=== PATIENT | male | born 1955 | race Caucasian/White ===

== ENCOUNTER 2024-02-21 14:30 | Emergency (ER) | payer MEDICARE, SELFPAY ==
[2024-02-21 14:32] VITALS: BP 132/107; PULSE 65; RESP 18; TEMP 36.1; O2SAT 96; BMI 25.5
--- NOTE | 2024-02-21 14:56 | EDS_ITS ---
HPI History of Present Illness Chief Complaint: Cellulitis Informant: patient Narrative Narrative: 68-year-old male presenting with pain, swelling, bruising to the right hand and forearm. He states this is from an injury that occurred a month ago and this is the first time he has sought treatment for it. He states his cat scratched him in the arm and as he swatted his cat away he smacked his hand accidentally on a nearby table. He is on warfarin. He had pain and swelling to the area on the back of his hand, he states that a couple days later there was pus coming out of that, he squeezed them out cleaned it with peroxide and has been performing self-care ever since. He states over the last several days to 1 week, the pain and swelling have been increasing, and spreading proximally. No other injuries. No systemic symptoms or fevers or chills. [facility] Medical History Afib TIA (transient ischemic attack) Gout Home Medications ?Medication ?Instructions ?Recorded ?Last Taken ?Type cephalexin 500 mg capsule 500 mg PO Q6 #40 CAPSULES 02/21/24 Unknown Rx Allergy/AdvReac Type Severity Reaction Status Date / Time No Known Allergies Allergy Verified 02/21/24 14:32 Family History no significant family his Surgical History no surgical history Social History Smoking Status: Current every day smoker tobacco type: e-cigarettes ROS ROS ED Constitutional Constitutional ED: Denies chills or fever(s) Musculoskeletal Musculoskeletal: Reports extremity pain; Denies neck pain Integumentary Reports wounds; Denies abscess Neurologic Neurologic: Denies paresthesias or weakness Hematologic/Lymphatic Hematologic/Lymphatic: Reports easy bleeding and easy bruising EXAM Physical Exam Const Vital Signs: 02/21/24 14:30 02/21/24 14:32 Temperature 97 F L Temperature Source Temporal Pulse Rate 65 Respiratory Rate 18 Respiratory Effort Normal Respiratory Pattern Normal Blood Pressure 132/107 H Blood Pressure Mean 115 Pulse Ox 96 Oxygen Delivery Method Room Air Positive well nourished and well developed General Appearance ED: well developed and NAD Neck full ROM and supple Back/Spine normal ROM and normal to inspection Extremity Extremity Narrative: Right upper extremity: Ecchymotic/purpuric dorsum of the right hand, fingers are not involved, there is tenderness at the center of it where the ecchymosis is the most dense, but there is no fluctuance or abscess. The plantar aspect of the hand and fingers is completely normal-appearing. The ecchymosis progresses up to the wrist and distal forearm, and there is a separate satellite patch of ecchymosis in the dorsal proximal forearm. He has some tenderness in the area of the epitrochlear lymph nodes but I do not palpate the nodes. There is no axillary lymphadenopathy or limitation/tenderness. He has full range of motion of the elbow without difficulty, he is able to flex and extend wrist without difficulty but he is limited at extremes due to swelling in the general area. All compartments of the forearm are soft and nondistended and nontender. He has no tingling in the fingertips with brisk cap refill. 2+/4 radial pulse palpable. Neuro oriented x3, no focal motor deficits and no sensory deficits noted Sensorium / Orientation: alert Psych mental status grossly normal and thought process normal Skin no wounds Rashes: no rashes MDM MDM MDM Narrative Medical decision making narrative: Patient states this has been a month. It appears more ecchymotic than it does cellulitic, but with it spreading proximally I would assume infection until proven otherwise. I obtained three-view x-ray series of the right hand, on my i nterpretation I see no obvious bone involvement or tracking subcutaneous emphysema, however radiology is concerned that he may have some early osteomyelitis of the base of the fifth metatarsal and the adjacent hamate. He was given empiric IV Unasyn given the history, even before this x-ray finding was seen. He has no leukocytosis. I added on ESR and CRP, the ESR is within normal limits and the CRP is elevated at 8. His INR is 1.7 a little subtherapeutic. His creatinine is elevated I do not have an old one to compare to. Given this I recommend admission. He will need an MRI, continued IV antibiotics, at the risk of this actually being osteomyelitis which certainly is not impossible since it has been a month since the original infection/injury, and I recommend admission. However the patient states he is not able to do that today because he has other things to do and he refuses. He understands the risks. He has the capacity to make this decision of my judgment. He states he could potentially come back tomorrow in order to be admitted and follow through with my recommendations. I advised him he is welcome to do that. In meantime I going to prescribe him antibiotics and put him in a Velcro wrist splint. Lab Data Attestation: I reviewed the patient's lab results. Labs: Laboratory Results - last 24 hr 02/21/24 15:00 WBC 7.7 RBC 4.94 Hgb 16.7 H Hct 49.1 MCV 99.4 H MCH 33.8 H MCHC 34.0 RDW Std Deviation 51.8 H RDW Coeff of Lemuel 14.4 Plt Count 157 MPV 9.5 Immature Gran % (Auto) 0.300 Neut % (Auto) 64.1 Lymph % (Auto) 19.9 Bladen % (Auto) 10.4 H Eos % (Auto) 4.7 Baso % (Auto) 0.6 Absolute Neuts (auto) 5.0 Absolute Lymphs (auto) 1.54 Nucleated RBC % 0 ESR 9 PT 19.8 H INR 1.7 Sodium 138 Potassium 3.6 Chloride 103 Carbon Dioxide 26.0 Anion Gap 9 BUN 13 Creatinine 1.68 H Estim Creat Clear Calc 48.25 Est GFR (MDRD) Af Amer 52 L Est GFR (MDRD) Non-Af 43 L BUN/Creatinine Ratio 7.7 L Glucose 143 H Calcium 9.6 C-React Prot Ext Range 8.00 H Radiography Diagnostic Testing: Clinical Impression(s) from Imaging Studies Hand X-Ray 02/21/24 15:00 IMPRESSION: 1. Soft tissue swelling with localized osteopenia and cortical loss of definition of the fifth metatarsal and adjacent hamate suggesting early erosion/osteomyelitis. Electronically Signed: Deon Soliman MD ([place]) at 15:18 EDT , Discharge Plan Triage Chief Complaint: Cellulitis ED Provider: Nelson Silva Dx/Rx/DC Orders Clinical Impression: Cat scratch of right hand with infection, Bone infection of right hand, Subtherapeutic international normalized ratio (INR) Instructions: Cellulitis Dc, Osteomyelitis Dc Prescriptions: New cephalexin 500 mg capsule 500 mg PO Q6 Qty: 40 0RF Primary Care Provider: Yvon Resendiz Referrals: Yvon Resendiz MD [Primary Care Provider] - As soon as possible (better to return to ER for admission) Activity Restrictions/Additional Instructions: Your INR is 1.7 today. You may either talk with your doctor for recommendations on dosing change, or take a single extra dose of warfarin and then follow-up for repeat level. As discussed, you may return to the ER at anytime if you change your mind about being admitted. Print Language: Chinese Disposition Disposition: Against Medical Advice
--- NOTE | 2024-02-21 15:00 | RAD_ITS ---
STUDY: X-RAY - RIGHT HAND REASON FOR EXAM: Male, 68 years old. infection/pain TECHNIQUE: 3 view(s) of the hand. COMPARISON: None. FINDINGS: Normal radiocarpal articulation. Normal distal radioulnar joint. Normal visualized carpal bones. Normal carpal articulations Normal carpometacarpal articulation of the thumb. Normal second through fifth carpometacarpal joints. There is localized osteopenia with cortical thinning involving the medial base of the fifth metacarpal and adjacent hamate with moderate soft tissue swelling. Normal metacarpophalangeal joint of the thumb. Normal interphalangeal joint of the thumb. Normal proximal and distal phalanges of the thumb. Normal metacarpophalangeal joints of the second through fifth fingers. Normal proximal and distal interphalangeal joints of the second through fifth fingers. Normal phalanges of the second through fifth fingers. RAD/Hand Min 3 Views IMPRESSION: 1. Soft tissue swelling with localized osteopenia and cortical loss of definition of the fifth metatarsal and adjacent hamate suggesting early erosion/osteomyelitis. Electronically Signed: Deon Soliman MD ([place]) at 15:18 EDT Reading Location ID and State: [facility] / [place] , Service support ,
[2024-02-21 15:24] LABS: Absolute Lymphocyte Count 1.54 X10^3/uL (0.83-4.51); Basophil# 0.05 X10^3/uL; Basophil% 0.6 % (0-1); Eosinophil# 0.36 X10^3/uL; Eosinophils% 4.7 % (0-5); Hematocrit 49.1 % (40-54); Hemoglobin 16.7 g/dL (13.0-16.5); Lymphocyte # 1.54 X10^3/ul (0.83-4.51); Lymphocyte % 19.9 % (19-41); Mean Corpuscular Hgb 33.8 pg (27.0-32.0); Mean Corpuscular Volume 99.4 fL (80-94); Mean Platelet Vol. 9.5 fl (6.2-12.0); Monocyte% 10.4 % (0-10); NRBC Flagged by Analyzer 0 % (0-5); Neutrophil # 4.95 X10^3/uL (2.7-7.7); Neutrophil % 64.1 % (47-70); Platelet Count 157 K/mm3 (150-450); RBC Distribution Width CV 14.4 % (11.6-14.6); RBC Distribution Width SD 51.8 fl (35.1-43.9); Red Blood Count 4.94 M/mm3 (4.6-6.2); White Blood Count 7.7 K/mm3 (4.4-11.0)
[2024-02-21 15:33] LABS: International Normalized Ratio 1.7; Prothrombin Time (Protime)PT. 19.8 SECONDS (11.7-14.9)
[2024-02-21] MEDS: Ampicillin/Sulbactam 3 GM in 0.9% Normal Saline (100mL MB+) 100 ML IV (15:36)
[2024-02-21 15:42] LABS: Anion Gap 9 (5-15); BUN 13 mg/dL (7-18); BUN/Creat Ratio 7.7 RATIO (10-20); Calcium,Total 9.6 mg/dL (8.5-10.1); Chloride 103 mmol/L (98-107); Creatinine, Serum 1.68 mg/dL (0.70-1.30); EST Glomerular Filtration Rate 43 mL/min (>60); Est Glom Filt Rate - Afr Amer 52 mL/min (>60); Estimated Creatinine Clearance 48.25 ml/min; Glucose 143 mg/dL (74-106); Potassium 3.6 mmol/L (3.5-5.1); Sodium Level 138 mmol/L (136-145)
[2024-02-21 16:16] LABS: Erythrocyte Sedimentation Rate 9 mm/hr (0-20)
[2024-02-21 16:30] VITALS: BP 172/106; PULSE 97; RESP 13; O2SAT 97
[2024-02-21 16:46] VITALS: BP 172/100; PULSE 97; RESP 13; TEMP 36.7; O2SAT 97
== END 2024-02-21 16:48 | disposition left against medical advice (07) ==
PROVIDERS: Emergency Provider Emergency Medicine; PCP Family Medicine; Visit Provider Emergency Medicine
DX: L03.113 Cellulitis of right upper limb (principal); M86.9 Osteomyelitis, unspecified; I48.91 Unspecified atrial fibrillation; S60.511A Abrasion of right hand, initial encounter; W55.03XA Scratched by cat, initial encounter; R79.1 Abnormal coagulation profile; F17.290 Nicotine dependence, other tobacco product, uncomplicated; Z79.01 Long term (current) use of anticoagulants; Z86.73 Personal history of transient ischemic attack (TIA), and cerebral infarction without residual deficits
CPT/HCPCS: 73130; 80048; 85025; 85610; 85652; 86140; 96365; 99285; A4216; J0295